=== PATIENT | male | born 1970 | race Hispanic/Latino ===

== ENCOUNTER 2017-09-03 21:41 | Inpatient (IN) | payer MEDICAID ==
[2017-09-03 21:41] VITALS: BMI 26.6
--- NOTE | 2017-09-03 22:37 | C.PDOC ---
Time Seen by Provider: 09/03/17 22:37 Chief Complaint (Nursing): Psychiatric Evaluation History Per: Patient History/Exam Limitations: no limitations Onset/Duration Of Symptoms: Days Current Symptoms Are (Timing): Still Present Suicide/Self Injury Attempted (Context): None Modifying Factor(s): Cocaine Severity: Moderate Pain Scale Rating Of: 4 Associated Symptoms: Anxiety, Agitation Involuntary Hold By: None Recent travel outside of the [place]: No Additional History Per: Patient Past Medical History Reviewed: Historical Data, Nursing Documentation, Vital Signs Vital Signs: Last Vital Signs Temp 98.2 F 09/03/17 21:58 Pulse 73 09/03/17 21:58 Resp 16 09/03/17 21:58 BP 128/85 09/03/17 21:58 Pulse Ox 98 09/03/17 22:37 - Medical History PMH: Anxiety, Bipolar Disorder, Depression, Kidney Stones, Chronic Kidney Disease, Schizophrenia Denies: Asthma, Bronchitis, Diabetes, Hepatitis, HIV, HTN, Seizures, Sexually Transmitted Disease - [facility] Procedures IMMOBILIZ/WOUND ATTN NEC (03/22/14) PSYCHIAT DRUG THERAP NEC (12/14/14) REMOV THERAPEUT DEV NEC (12/31/14) TETANUS TOXOID ADMINIST (03/06/07) VENOUS PUNCTURE NEC (08/25/11) Family History: States: No Known Family Hx - Social History Hx Tobacco Use: Yes Hx Alcohol Use: No Hx Substance Use: Yes - Immunization History Hx Tetanus Toxoid Vaccination: No Review Of Systems Constitutional: Negative for: Fever, Chills Cardiovascular: Negative for: Chest Pain Respiratory: Negative for: Shortness of Breath Gastrointestinal: Negative for: Abdominal Pain Musculoskeletal: Negative for: Back Pain Skin: Negative for: Rash Neurological: Negative for: Dizziness Psych: Positive for: Anxiety, Psychosis Physical Exam - Physical Exam Appears: Non-toxic Skin: Warm, Dry Head: Normacephalic Eye(s): bilateral: Normal Inspection Oral Mucosa: Moist Neck: Supple Chest: Symmetrical Cardiovascular: Rhythm Regular Respiratory: No Rales, No Rhonchi Gastrointestinal/Abdominal: Soft, No Tenderness Back: Normal Inspection Extremity: Normal ROM Neurological/Psych: Oriented x3 Gait: Steady ED Course And Treatment - Laboratory Results Result Diagrams: 09/03/17 23:05 09/03/17 23:05 O2 Sat by Pulse Oximetry: 98 Disposition Discussed With : Marilu Harvey Comment: accepted the pt on his service and took over the care at 3:41 AM Doctor Will See Patient In The: Hospital Counseled Patient/Family Regarding: Studies Performed, Diagnosis - Disposition Disposition: HOSPITALIZED Disposition Time: 22:37 Condition: FAIR Forms: [facility] (Djiboutian) - POA Present On Arrival: None - Clinical Impression Clinical Impression: Schizophrenia, Cocaine addiction Decision To Admit - Pt Status Changed To: Hospital Disposition Of: Inpatient - Admit Certification Admit to Inpatient:: After my assessment, the patient will require hospitalization for at least two midnights. This is because of the severity of symptoms shown, intensity of services needed, and/or the medical risk in this patient being treated as an outpatient. - InPatient: Physician Admission Certification: I certify that this patient requires 2 or more midnights of care for the following reason:: After my assessment, the patient will require hospitalization for at least two midnights. This is because of the severity of symptoms shown, intensity of services needed, and/or the medical risk in this patient being treated as an outpatient. - . Bed Request Type: Psychiatry Admitting Physician: Marilu Harvey Patient Diagnosis: Schizophrenia, Cocaine addiction
[2017-09-03 23:09] LABS: BASO # 0.1 K/uL (0.0-0.2); BASO % 0.9 % (0.0-2.0); EOS # 0.4 K/uL (0.0-0.7); EOS % 4.9 % (0.0-4.0); HEMOGLOBIN 12.7 g/dL (12.0-18.0); LYMPH # 2.3 K/uL (1.0-4.3); LYMPH % 30.8 % (20.0-40.0); MEAN CELL VOLUME 84.3 fL (80.0-94.0); MEAN CORPUSCULAR HGB CONC 34.4 g/dL (33.0-37.0); MEAN PLATELET VOLUME 7.8 fL (7.2-11.7); MONO # 0.5 K/uL (0.0-0.8); MONO % 7.2 % (0.0-10.0); NEUT # 4.2 K/uL (1.8-7.0); NEUT % 56.2 % (50.0-75.0); RBC 4.38 Mil/uL (4.40-5.90); RED CELL DISTRIBUTION WIDTH 13.4 % (11.5-14.5); WHITE BLOOD COUNT 7.5 K/uL (4.8-10.8)
[2017-09-03 23:23] LABS: ALB/GLOB RATIO 1.1 (1.0-2.1); ALBUMIN 3.6 g/dL (3.5-5.0); ALT/SGPT 32 U/L (21-72); AST/SGOT 26 U/L (17-59); BLOOD UREA NITROGEN 17 mg/dL (9-20); CALCIUM 8.9 mg/dl (8.6-10.4); GFR AFRICAN-AMERICAN > 60; GFR NON-AFRICAN AMERICAN > 60
[2017-09-04 02:50] LABS: SQUAMOUS EPITHIAL < 1 /hpf (0-5); URINE BILIRUBIN NEGATIVE (NEGATIVE); URINE BLOOD NEGATIVE (NEGATIVE); URINE CLARITY Clear (Clear); URINE COLOR Yellow (YELLOW); URINE GLUCOSE (UA) NORMAL (Normal); URINE LEUKOCYTE ESTERASE NEG Leu/uL (Negative); URINE PROTEIN NEGATIVE (NEGATIVE)
[2017-09-04 03:03] LABS: BARBITURATES, UR NEGATIVE (NEGATIVE); BENZODIAZEPINES, UR NEGATIVE (NEGATIVE); OPIATES, UR NEGATIVE (NEGATIVE); PHENCYCLIDINE, UR NEGATIVE (NEGATIVE)
--- NOTE | 2017-09-04 12:01 | PCM.BM ---
<Aurora Correa - Last Filed: 09/04/17 11:59> Treatment Plan Problems - Problems identified on initial assessmt Depression Date Initiated: 09/04/17 Time Initiated: 12:00 Assessment reference: NA Status: Active Substance Abuse Date Initiated: 09/04/17 Time Initiated: 12:00 Assessment reference: NA Status: Active Treatment assets and liabiliti Patient Assests: ADL independent, physically healthy, negotiates basic needs, cognitively intact Patient Liabilities: relationship conflicts, substance abuse - Milieu Protocol Maintain good personal hygiene: daily Encourage regular showers Conduct patient checks and document Observation sheet: Q15 minutes Maintain personal safety: every shift Educate patient to report safety concerns to staff, every shift Monitor environment for contraband/sharps Medication safety: Monitor for expected outcome, potential side effects: every shift, Assess barriers to learning: every shift, Assess readiness for medication education: every shift <Marilu Harvey - Last Filed: 09/06/17 11:44> - Diagnosis (1) Schizophrenia Status: Chronic Interventions: 09/06/17 11:44 * Assess/adjust medications daily and /or as needed * See patient on an individual basis 7x/week to assess status of hallucinations * Discuss risks, benefits, side effects and alternatives of medications * <Liza Navarro - Last Filed: 09/06/17 16:32> Family Contact Family involvement: Patient does not wish Family/SO involvement Family contact: Patient declines to allow family contact at present - Goals for Treatment Patient goals for treatment: "I do not know where I want to go for treatment!" Discharge/Continuing Care - Education Needs Education Needs: Patient Medication, Patient Diagnosis/Disease Process, Patient Coping Skills, Patient Anger Management skills, Patient Placement options, Patient Community resources - Discharge Discharge Criteria: Free of Suicidal thoughts, Normal sleep pattern, Ability to care for self, No longer exhibiting s/s of withdrawal, Reduction of target symptoms Discharge to:: [facility], [facility] Rehab, Other - Treatment Team Participation Discussed with Family/SO: No Was Patient/Family/SO present at Treatment Team Meeting: No (Pt refused to attend treatment meeting.)
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
[2017-09-04] MEDS: Divalproex 250 mg DR Tab PO SCH ×2 (13:45→17:20)
[2017-09-05] MEDS: Divalproex 250 mg DR Tab PO SCH (09:45)
--- NOTE | 2017-09-05 15:48 | PCM.PYCHPN ---
Psychiatric Progress Note - Psychiatric Progress Note Patient seen today, length of contact: 16 min Patient Chief Complaint: I'm not feeling well.' Problems Identified/Issues Discussed: Patient seen and evaluated, chart reviewed and discussed with the nurse. Patient remained disorganized and internally preoccupied. Patient remained isolated, confined and withdrawn. He still reports of hearing voices. Patient still appears paranoid and delusional. He reports depressed mood and irritability. He continued to have loose associations. He is taking medication and denies any side effects. Symptoms are improving but needs more time for stabilization. Supportive therapy and psychoeducation were given. Medication Change: Yes Medical Record Reviewed: Yes Mental Status Examination - Cognitive Function Orientation: Person, Place, Situation, Time Memory: Intact Attention: Poor Concentration: Poor Association: Loose Fund of Knowledge: Poor - Mood Mood: Depressed, Anxious - Affect Affect: Broad - Speech Speech: Loud, Pressured - Formal Thought Process Formal Thought Process: Delusions, Paranoia, Loosening of associations, Flight of ideas, Circumstantial - Suicidal Ideation Suicidal Ideation: No - Homicidal Ideation Homicidal Ideation: No Goal/Treatment Plan - Goal/Treatment Plan Need for Continued Stay: Severe depression anxiety, Severe functional impairment Progress Toward Problem(s) and Goals/Treatment Plan: Schizoaffective disorder bipolar type CBT Psychoeducation Supportive therapy, group therapy, individual therapy Olanzapine 5 mg PO BID Depakote 5000 mg by mouth twice a day Trazodone 100 mg by mouth daily at bedtime Cogentin 1 mg BID Cocaine use disorder severe CBT Psychoeducation Supportive therapy, individual therapy Use [place] for abstinence - Smoking Cessation Smoking Cessation Initiated: No
[2017-09-05] MEDS: Divalproex 500 mg DR Tab PO SCH (18:04)
[2017-09-06] MEDS: Divalproex 500 mg DR Tab PO SCH ×2 (09:37→17:50)
--- NOTE | 2017-09-06 10:01 | PCM.PYCHPN ---
Psychiatric Progress Note - Psychiatric Progress Note Patient seen today, length of contact: 16 min Patient Chief Complaint: I'm not feeling well.' Problems Identified/Issues Discussed: Patient seen and evaluated, chart reviewed and discussed with the nurse. Patient remained disorganized and internally preoccupied. Patient remained isolated, confined and withdrawn. He still reports of hearing voices. Patient still appears paranoid and delusional. He reports depressed mood and irritability. He continued to have loose associations. He is taking medication and denies any side effects. Symptoms are improving but needs more time for stabilization. Supportive therapy and psychoeducation were given. Medication Change: Yes Medical Record Reviewed: Yes Mental Status Examination - Cognitive Function Orientation: Person, Place, Situation, Time - Mood Mood: Depressed, Anxious - Affect Affect: Broad - Speech Speech: Loud, Pressured - Formal Thought Process Formal Thought Process: Delusions, Paranoia, Loosening of associations, Flight of ideas, Circumstantial - Suicidal Ideation Suicidal Ideation: No - Homicidal Ideation Homicidal Ideation: No Goal/Treatment Plan - Goal/Treatment Plan Need for Continued Stay: Severe depression anxiety, Severe functional impairment Progress Toward Problem(s) and Goals/Treatment Plan: Schizoaffective disorder bipolar type CBT Psychoeducation Supportive therapy, group therapy, individual therapy Depakote 250 mg by mouth twice a day Trazodone 50 mg by mouth daily at bedtime Ativan 1 mg PO Q6 hr prn Cocaine use disorder severe CBT Psychoeducation Supportive therapy, individual therapy Use [place] for abstinence
[2017-09-07] MEDS: Divalproex 500 mg DR Tab PO SCH ×3 (09:08→17:17)
[2017-09-08] MEDS: Divalproex 500 mg DR Tab PO SCH ×2 (09:33→17:45)
--- NOTE | 2017-09-09 10:08 | PCM.PYCHPN ---
Psychiatric Progress Note - Psychiatric Progress Note Patient seen today, length of contact: 16 min Patient Chief Complaint: I'm not feeling well.' Problems Identified/Issues Discussed: Patient seen and evaluated, chart reviewed and discussed with the nurse. Had a meeting with 2 probation officers. Pt came out of his room and joined the meeting. He appears more organized and less internally preoccupied than before. Patient still appears paranoid and delusional. He reports improvement in his depressed mood and irritability. He is taking medication and denies any side effects. Symptoms are improving but needs more time for stabilization. Supportive therapy and psychoeducation were given. Medication Change: Yes Medical Record Reviewed: Yes Mental Status Examination - Cognitive Function Orientation: Person, Place, Situation, Time Memory: Intact Attention: WNL Concentration: Poor Association: Loose Fund of Knowledge: Poor - Mood Mood: Depressed, Anxious - Affect Affect: Broad - Speech Speech: Loud, Pressured - Formal Thought Process Formal Thought Process: Delusions, Paranoia, Loosening of associations, Flight of ideas, Circumstantial - Suicidal Ideation Suicidal Ideation: No - Homicidal Ideation Homicidal Ideation: No Goal/Treatment Plan - Goal/Treatment Plan Need for Continued Stay: Severe depression anxiety, Severe functional impairment Progress Toward Problem(s) and Goals/Treatment Plan: Schizoaffective disorder bipolar type CBT Psychoeducation Supportive therapy, group therapy, individual therapy Depakote 250 mg by mouth twice a day Trazodone 50 mg by mouth daily at bedtime Ativan 1 mg PO Q6 hr prn Cocaine use disorder severe CBT Psychoeducation Supportive therapy, individual therapy Use [place] for abstinence - Smoking Cessation Smoking Cessation Initiated: No
[2017-09-09] MEDS: Divalproex 500 mg DR Tab PO SCH ×2 (11:02→17:31)
[2017-09-10] MEDS: Divalproex 500 mg DR Tab PO SCH ×2 (09:20→17:10)
--- NOTE | 2017-09-10 10:00 | PCM.PYCHPN ---
Psychiatric Progress Note - Psychiatric Progress Note Patient seen today, length of contact: 16 min Patient Chief Complaint: I'm not feeling well.' Problems Identified/Issues Discussed: Patient seen and evaluated, chart reviewed and discussed with the nurse. Pt came out of his room and appears more organized and less internally preoccupied than before. Patient still appears somewhat paranoidl. He reports improvement in his depressed mood and irritability. He is taking medication and denies any side effects. Symptoms are improving but needs more time for stabilization. Supportive therapy and psychoeducation were given. Medication Change: Yes (increase depakote) Medical Record Reviewed: Yes Mental Status Examination - Cognitive Function Orientation: Person, Place, Situation, Time Memory: Intact Attention: WNL Concentration: Poor Association: Loose Fund of Knowledge: WNL - Mood Mood: Depressed, Anxious - Affect Affect: Broad - Speech Speech: Loud, Pressured - Formal Thought Process Formal Thought Process: Paranoia, Loosening of associations - Suicidal Ideation Suicidal Ideation: No - Homicidal Ideation Homicidal Ideation: No Goal/Treatment Plan - Goal/Treatment Plan Need for Continued Stay: Severe depression anxiety, Severe functional impairment Progress Toward Problem(s) and Goals/Treatment Plan: Schizoaffective disorder bipolar type CBT Psychoeducation Supportive therapy, group therapy, individual therapy Depakote 500 mg by mouth twice a day Trazodone 50 mg by mouth daily at bedtime Increase Olanzapine to 10 mg PO BID Ativan 1 mg PO Q6 hr prn Cocaine use disorder severe CBT Psychoeducation Supportive therapy, individual therapy Use [place] for abstinence
[2017-09-11] MEDS: Divalproex 500 mg DR Tab PO SCH ×2 (09:22→17:13)
--- NOTE | 2017-09-11 16:20 | PCM.PYCHPN ---
Psychiatric Progress Note - Psychiatric Progress Note Patient seen today, length of contact: 16 min Patient Chief Complaint: "I'm feeling Okay" Problems Identified/Issues Discussed: Patient seen and evaluated, chart reviewed and discussed with the nurse. Patient is improving but he still needs to improve. He is less disorganized and internally preoccupied. Patient remained isolated, confined and withdrawn. He still reports of hearing voices. Patient still appears paranoid and delusional. He reports depressed mood and irritability. He continued to have loose associations. He is taking medication and denies any side effects. Symptoms are improving but needs more time for stabilization. DSM 5 Symptoms Update: Schizoaffective disorder cocaine use disorder Medication Change: Yes Medical Record Reviewed: Yes Mental Status Examination - Cognitive Function Orientation: Person, Place, Situation, Time Memory: Intact Attention: Poor Concentration: WNL Association: Loose Fund of Knowledge: Poor Decription of patient's judgement and insights: limited/limited - Mood Mood: Depressed, Anxious - Affect Affect: Broad - Speech Speech: Loud, Pressured - Formal Thought Process Formal Thought Process: Delusions, Paranoia, Loosening of associations, Flight of ideas, Circumstantial - Suicidal Ideation Suicidal Ideation: No Plan: denied - Homicidal Ideation Homicidal Ideation: No Plan: denied Goal/Treatment Plan - Goal/Treatment Plan Need for Continued Stay: Severe depression anxiety, Severe functional impairment Progress Toward Problem(s) and Goals/Treatment Plan: Continue treatment as per primary team Therapy in milieu Psychoeducation provided regarding diagnosis, treatment, meds benefits, side effects, risk and alternative choices. Pt verbalized understanding and agree with the treatment plan. Continue current management and medications. Patient educated about risks, benefits, side effects & alternatives of meds. Pt verbalized understanding & agreed with the above. Estimated Date of D/C: 09/17/17
[2017-09-12] MEDS: Divalproex 500 mg DR Tab PO SCH ×2 (09:20→17:13)
--- NOTE | 2017-09-12 17:58 | PCM.PYCHPN ---
Psychiatric Progress Note - Psychiatric Progress Note Patient seen today, length of contact: 16 min Patient Chief Complaint: "I'm Okay" Problems Identified/Issues Discussed: Patient seen and evaluated, chart reviewed and discussed with the nurse. Patient is improving but he still needs to improve. He is less disorganized and internally preoccupied. Patient remained isolated, confined and withdrawn. He still reports of hearing voices. Patient still appears paranoid and delusional. He reports depressed mood and irritability. He continued to have loose associations. He is taking medication and denies any side effects. Symptoms are improving but needs more time for stabilization. DSM 5 Symptoms Update: Schizoaffective disorder cocaine use disorder Medication Change: No Medical Record Reviewed: Yes Mental Status Examination - Cognitive Function Orientation: Person, Place, Situation, Time Memory: Intact Attention: Poor Concentration: WNL Association: Loose Fund of Knowledge: Poor Decription of patient's judgement and insights: limited/limited - Mood Mood: Depressed - Affect Affect: Blunted - Speech Speech: Pressured - Formal Thought Process Formal Thought Process: Delusions, Paranoia, Loosening of associations, Flight of ideas, Circumstantial - Suicidal Ideation Suicidal Ideation: No Plan: denied - Homicidal Ideation Homicidal Ideation: No Plan: denied Goal/Treatment Plan - Goal/Treatment Plan Need for Continued Stay: Severe depression anxiety, Severe functional impairment Progress Toward Problem(s) and Goals/Treatment Plan: Continue treatment as per primary team Therapy in milieu Psychoeducation provided regarding diagnosis, treatment, meds benefits, side effects, risk and alternative choices. Pt verbalized understanding and agree with the treatment plan. Continue current management and medications. Patient educated about risks, benefits, side effects & alternatives of meds. Pt verbalized understanding & agreed with the above. Estimated Date of D/C: 09/17/17
[2017-09-13 07:00] VITALS: RESP 18; TEMP 97.5; O2SAT 98
[2017-09-13] MEDS: Divalproex 500 mg DR Tab PO SCH ×2 (09:00→17:24)
[2017-09-14 06:44] VITALS: BP 134/71; PULSE 63
[2017-09-14] MEDS: Divalproex 500 mg DR Tab PO SCH (09:00)
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
--- NOTE | 2017-09-14 10:06 | PCM.PYCHPN ---
Psychiatric Progress Note - Psychiatric Progress Note Patient seen today, length of contact: 16 min Patient Chief Complaint: I'm feeling little better.' Problems Identified/Issues Discussed: Patient seen and evaluated, chart reviewed and discussed with the nurse. Pt came out of his room and appears more organized and less internally preoccupied than before. Patient still appears somewhat paranoidl. He reports improvement in his depressed mood and irritability. He is taking medication and denies any side effects. Symptoms are improving but needs more time for stabilization. Supportive therapy and psychoeducation were given. Medication Change: Yes Medical Record Reviewed: Yes Mental Status Examination - Cognitive Function Orientation: Person, Place, Situation, Time Memory: Intact Attention: WNL Concentration: Poor Association: Loose Fund of Knowledge: WNL - Mood Mood: Depressed, Anxious - Affect Affect: Broad - Speech Speech: Loud, Pressured - Formal Thought Process Formal Thought Process: Paranoia, Loosening of associations - Suicidal Ideation Suicidal Ideation: No - Homicidal Ideation Homicidal Ideation: No Goal/Treatment Plan - Goal/Treatment Plan Need for Continued Stay: Severe depression anxiety, Severe functional impairment Progress Toward Problem(s) and Goals/Treatment Plan: Schizoaffective disorder bipolar type CBT Psychoeducation Supportive therapy, group therapy, individual therapy Depakote 500 mg by mouth twice a day Trazodone 100 mg by mouth daily at bedtime Olanzapine to 10 mg PO BID Ativan 1 mg PO Q6 hr prn Cocaine use disorder severe CBT Psychoeducation Supportive therapy, individual therapy Use [place] for abstinence Estimated Date of D/C: 09/17/17
== END 2017-09-14 12:03 | disposition home or self-care (01) | DRG 430 ==
LOC: C.ER 21:41 → C.5E 09-04 03:40
PROVIDERS: ADMIT Psychiatry & Neurology Psychiatry; ATTEND Psychiatry & Neurology Psychiatry
PROC: GZHZZZZ Group Psychotherapy (ICD-10-PCS; principal; 2017-09-04)
DX: F25.0 Schizoaffective disorder, bipolar type (principal); N18.9 Chronic kidney disease, unspecified; F14.10 Cocaine abuse, uncomplicated; G47.00 Insomnia, unspecified; R45.851 Suicidal ideations; Z87.891 Personal history of nicotine dependence

== ENCOUNTER 2017-09-28 10:07 | Emergency (ER) | payer MEDICAID ==
[2017-09-28 10:10] VITALS: BMI 25.1
[2017-09-28 10:13] VITALS: BP 163/84; PULSE 101; RESP 20; TEMP 98.2; O2SAT 98
--- NOTE | 2017-09-28 10:45 | C.PDOC ---
History Of Present Illness 47 y/o male homeless with PMHx of scizoaffective , bipolar disorder presents to the ED with depressive mood. States he feels like giving up and is having thoughts of harming himself. Otherwise, pt denies any active physical complaints. Denies having hallucinations, headache, dizziness, CP, SOB, dyspnea , palpitation, abd. pain, N/V/D. Appears comfortable, not in any apparent distress. Time Seen by Provider: 09/28/17 10:08 Chief Complaint (Nursing): Psychiatric Evaluation History Per: Patient History/Exam Limitations: no limitations Onset/Duration Of Symptoms: Days Current Symptoms Are (Timing): Still Present Associated Symptoms: Depression, Suicidal Thoughts Past Medical History Reviewed: Historical Data, Nursing Documentation, Vital Signs Vital Signs: Last Vital Signs Temp 98.2 F 09/28/17 10:10 Pulse 101 H 09/28/17 10:10 Resp 20 09/28/17 10:10 BP 163/84 H 09/28/17 10:10 Pulse Ox 98 09/28/17 12:30 - Medical History PMH: Anxiety, Bipolar Disorder, Depression, Kidney Stones, Chronic Kidney Disease, Schizophrenia Denies: Asthma, Bronchitis, Diabetes, Hepatitis, HIV, HTN, Seizures, Sexually Transmitted Disease Surgical History: No Surg Hx - [facility] Procedures GROUP PSYCHOTHERAPY (09/04/17) IMMOBILIZ/WOUND ATTN NEC (03/22/14) PSYCHIAT DRUG THERAP NEC (12/14/14) REMOV THERAPEUT DEV NEC (12/31/14) TETANUS TOXOID ADMINIST (03/06/07) VENOUS PUNCTURE NEC (08/25/11) Family History: States: Unknown Family Hx - Social History Hx Tobacco Use: Yes Hx Alcohol Use: Yes Hx Substance Use: Yes - Immunization History Hx Tetanus Toxoid Vaccination: No Hx Influenza Vaccination: No Hx Pneumococcal Vaccination: No Review Of Systems Except As Marked, All Systems Reviewed And Found Negative. Psych: Positive for: Depression, Suicidal ideation. Negative for: Other ( hallucinations, homicidal ideation) Physical Exam - Physical Exam Appears: Well, Non-toxic, No Acute Distress, Other (Appears disheveled, foul smelling) Skin: Normal Color, Warm, No Rash Head: Atraumatic, Normacephalic Eye(s): bilateral: PERRL Nose: No Flaring, No Discharge Oral Mucosa: Moist, No Drooling, No Trismus Tongue: Normal Appearing Throat: No Drooling Neck: Normal ROM, Trachea Midline, No Midline Cervical Tenderness, No Paracervical Tenderness, Supple Chest: Symmetrical, No Deformity, No Tenderness Cardiovascular: Rhythm Regular, No Murmur, No JVD Respiratory: No Accessory Muscle Use, No Rales, No Rhonchi, No Stridor, No Wheezing Gastrointestinal/Abdominal: Soft, No Tenderness, No Distention Back: No Vertebral Tenderness, No Paraspinal Tenderness Extremity: Normal ROM, No Tenderness, No Pedal Edema, Capillary Refill (less than 2sec), No Deformity, Other (No abrasions or evidence of trauma) Pulses: Left Radial: Normal, Right Radial: Normal Neurological/Psych: Oriented x3, Normal Speech, Normal Cranial Nerves, Normal Motor, Normal Sensation, Other (No focal deficits) Gait: Steady ED Course And Treatment - Laboratory Results Result Diagrams: 09/28/17 10:55 09/28/17 10:55 Lab Interpretation: No Acute Changes O2 Sat by Pulse Oximetry: 98 (RA) Pulse Ox Interpretation: Normal Progress Note: Blood work and urine sent. Patient placed on 1:1 observation due to suicide precautions. At 12:10, blood work, UA results review and appears normal. Pt is medically cleared for PES evaluation. AT 12:55, pt was evaluated by PES, case discussed with and pt was psych cleared for discharge and outpt f/u. On re-eval, pt is awake, comforatble, not in any apparent distress. Ambulatory in ED with stable gait. Neurologicaly intact. Stable for discharge with outpt f/u now. Disposition Counseled Patient/Family Regarding: Studies Performed, Diagnosis, Need For Followup - Disposition Referrals: [facility] [Outside] [facility] [Outside] Disposition: HOME/ ROUTINE Disposition Time: 13:00 Condition: STABLE Additional Instructions: Follow up with Psychiatrist in 2-3 days for re-evaluation as need return if any new changes. Instructions: Schizoaffective Disorder Forms: [facility] (Togolese) - Clinical Impression Clinical Impression: Malingering, Schizoaffective disorder - PA / ASSEMBLY LINE LEADER / Resident Statement MD/DO has reviewed & agrees with the documentation as recorded. - Scribe Statement The provider has reviewed the documentation as recorded by the Scribe (Elizabeth Littlejohn) All medical record entries made by the Scribe were at my direction and personally dictated by me. I have reviewed the chart and agree that the record accurately reflects my personal performance of the history, physical exam, medical decision making, and the department course for this patient. I have also personally directed, reviewed, and agree with the discharge instructions and disposition.
[2017-09-28 11:06] LABS: BASO % 0.5 % (0.0-2.0); EOS # 0.5 K/uL (0.0-0.7); EOS % 8.3 % (0.0-4.0); HEMOGLOBIN 13.4 g/dL (12.0-18.0); LYMPH # 1.8 K/uL (1.0-4.3); LYMPH % 27.3 % (20.0-40.0); MEAN CELL VOLUME 84.6 fL (80.0-94.0); MEAN CORPUSCULAR HGB CONC 34.2 g/dL (33.0-37.0); MEAN PLATELET VOLUME 7.7 fL (7.2-11.7); MONO # 0.5 K/uL (0.0-0.8); MONO % 7.4 % (0.0-10.0); NEUT # 3.6 K/uL (1.8-7.0); NEUT % 56.5 % (50.0-75.0); NRBC % 0.1 % (0.0-2.0); RBC 4.64 Mil/uL (4.40-5.90); RED CELL DISTRIBUTION WIDTH 14.4 % (11.5-14.5); WHITE BLOOD COUNT 6.5 K/uL (4.8-10.8)
[2017-09-28 11:23] LABS: ALB/GLOB RATIO 1.6 (1.0-2.1); ALBUMIN 4.2 g/dL (3.5-5.0); ALT/SGPT 20 U/L (21-72); AST/SGOT 22 U/L (17-59); BLOOD UREA NITROGEN 18 mg/dL (9-20); CALCIUM 9.1 mg/dl (8.6-10.4); GFR AFRICAN-AMERICAN > 60; GFR NON-AFRICAN AMERICAN > 60
[2017-09-28 12:09] LABS: SQUAMOUS EPITHIAL < 1 /hpf (0-5); URINE BILIRUBIN NEGATIVE (NEGATIVE); URINE BLOOD NEGATIVE (NEGATIVE); URINE CLARITY Hazy (Clear); URINE COLOR Amber (YELLOW); URINE GLUCOSE (UA) NORMAL (Normal); URINE LEUKOCYTE ESTERASE TRACE Leu/uL (Negative); URINE PROTEIN 1+ mg/dL (NEGATIVE)
[2017-09-28 13:11] LABS: BARBITURATES, UR NEGATIVE (NEGATIVE); BENZODIAZEPINES, UR NEGATIVE (NEGATIVE); OPIATES, UR NEGATIVE (NEGATIVE); PHENCYCLIDINE, UR NEGATIVE (NEGATIVE)
== END 2017-09-28 13:48 | disposition home or self-care (01) ==
LOC: C.ER 10:07
DX: F25.9 Schizoaffective disorder, unspecified (principal); Z76.5 Malingerer [conscious simulation]; Z59.0 Homelessness; Z72.0 Tobacco use; N18.9 Chronic kidney disease, unspecified

== ENCOUNTER 2017-09-28 19:15 | Emergency (ER) | payer MEDICAID ==
[2017-09-28 19:16] VITALS: BMI 25.1
[2017-09-28 19:19] VITALS: RESP 16
[2017-09-28 19:26] VITALS: BP 95/58; PULSE 77; TEMP 98.3; O2SAT 96
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
== END 2017-09-28 20:52 | disposition home or self-care (01) ==
LOC: C.ER 19:15
DX: F10.10 Alcohol abuse, uncomplicated (principal); F20.9 Schizophrenia, unspecified; N18.9 Chronic kidney disease, unspecified; Z72.0 Tobacco use

== ENCOUNTER 2017-09-30 13:05 | Emergency (ER) | payer MEDICAID ==
[2017-09-30 13:05] VITALS: BMI 25.1
[2017-09-30 13:27] VITALS: RESP 18; O2SAT 99
--- NOTE | 2017-09-30 16:15 | C.PDOC ---
History Of Present Illness 47-year-old male, presents to the emergency department requesting detox from drugs. States he doesn't want to do drugs anymore. Patient notes that if he does not receive detox, he will harm himself. Denies nausea/vomiting, fever or chills. No HI Time Seen by Provider: 09/30/17 14:22 Chief Complaint (Nursing): Substance Abuse History Per: Patient History/Exam Limitations: no limitations Current Symptoms Are (Timing): Still Present Past Medical History Reviewed: Historical Data, Nursing Documentation, Vital Signs Vital Signs: Last Vital Signs Temp 98.4 F 09/30/17 16:33 Pulse 64 09/30/17 16:33 Resp 18 09/30/17 16:33 BP 132/81 09/30/17 16:33 Pulse Ox 99 09/30/17 16:33 - Medical History PMH: Anxiety, Bipolar Disorder, Depression, Kidney Stones, Chronic Kidney Disease, Schizophrenia Denies: Asthma, Bronchitis, Diabetes, Hepatitis, HIV, HTN, Seizures, Sexually Transmitted Disease - [facility] Procedures GROUP PSYCHOTHERAPY (09/04/17) IMMOBILIZ/WOUND ATTN NEC (03/22/14) PSYCHIAT DRUG THERAP NEC (12/14/14) REMOV THERAPEUT DEV NEC (12/31/14) TETANUS TOXOID ADMINIST (03/06/07) VENOUS PUNCTURE NEC (08/25/11) Family History: States: No Known Family Hx - Social History Hx Tobacco Use: Yes Hx Alcohol Use: Yes Hx Substance Use: Yes - Immunization History Hx Tetanus Toxoid Vaccination: No Hx Influenza Vaccination: No Hx Pneumococcal Vaccination: No Review Of Systems Constitutional: Negative for: Fever, Chills Cardiovascular: Negative for: Chest Pain Respiratory: Negative for: Shortness of Breath Gastrointestinal: Negative for: Nausea, Vomiting Musculoskeletal: Negative for: Back Pain Neurological: Negative for: Weakness, Numbness, Headache, Dizziness Physical Exam - Physical Exam Appears: Non-toxic, No Acute Distress Skin: Normal Color, Warm, Dry, No Rash Head: Atraumatic, Normacephalic Eye(s): bilateral: Normal Inspection Nose: Normal Oral Mucosa: Moist Lips: Normal Appearing Neck: Normal ROM Chest: Symmetrical Cardiovascular: Rhythm Regular, No Murmur Respiratory: Normal Breath Sounds, No Accessory Muscle Use Gastrointestinal/Abdominal: Soft, No Tenderness Back: Normal Inspection Extremity: Normal ROM, No Deformity, No Swelling Neurological/Psych: Oriented x3, Normal Speech ED Course And Treatment O2 Sat by Pulse Oximetry: 99 Medical Decision Making Medical Decision Making: Pt evaluated by crisis, recommends discharge by Dr Harvey and omar outpatient with clinic Disposition Discussed With : Marilu Harvey Doctor Will See Patient In The: Hospital Counseled Patient/Family Regarding: Studies Performed, Diagnosis, Need For Followup - Disposition Referrals: Marilu Harvey MD [Staff Provider] - Disposition: HOME/ ROUTINE Disposition Time: 16:13 Condition: STABLE Additional Instructions: you are discharged by Dr. Harvey follow up with [facility] as instructed return to ER if symptoms worsens or progress Instructions: Schizophrenia (DC) Forms: [facility] (Belarusian), General Discharge Instructions - Clinical Impression Clinical Impression: Schizophrenia - Scribe Statement The provider has reviewed the documentation as recorded by the Scribe (Neftaly Jones) All medical record entries made by the Scribe were at my direction and personally dictated by me. I have reviewed the chart and agree that the record accurately reflects my personal performance of the history, physical exam, medical decision making, and the department course for this patient. I have also personally directed, reviewed, and agree with the discharge instructions and disposition.
[2017-09-30 16:33] VITALS: BP 132/81; PULSE 64; TEMP 98.4
== END 2017-09-30 17:00 | disposition home or self-care (01) ==
LOC: C.ER 13:05
DX: F20.9 Schizophrenia, unspecified (principal); Z72.0 Tobacco use

== ENCOUNTER 2017-11-10 21:26 | Inpatient (IN) | payer MEDICAID ==
[2017-11-10 21:26] VITALS: BMI 25.1
--- NOTE | 2017-11-10 21:46 | C.PDOC ---
History Of Present Illness 47 year old male with a Hx of bipolar disorder presents to the ER agitated and shouting with no specific complaint. Chief Complaint (Nursing): Abdominal Pain History Per: Patient History/Exam Limitations: no limitations Onset/Duration Of Symptoms: Hrs Current Symptoms Are (Timing): Still Present Past Medical History Reviewed: Historical Data, Nursing Documentation, Vital Signs Vital Signs: Last Vital Signs Temp 97.6 F 11/11/17 00:33 Pulse 90 11/11/17 05:47 Resp 14 11/11/17 05:47 BP 100/68 11/11/17 05:47 Pulse Ox 96 11/11/17 05:47 - Medical History PMH: Anxiety, Bipolar Disorder, Depression, Kidney Stones, Chronic Kidney Disease, Schizophrenia Denies: Asthma, Bronchitis, Diabetes, Hepatitis, HIV, HTN, Seizures, Sexually Transmitted Disease - [facility] Procedures GROUP PSYCHOTHERAPY (09/04/17) IMMOBILIZ/WOUND ATTN NEC (03/22/14) MEDICATION MANAGEMENT (10/02/17) PSYCHIAT DRUG THERAP NEC (12/14/14) REMOV THERAPEUT DEV NEC (12/31/14) TETANUS TOXOID ADMINIST (03/06/07) VENOUS PUNCTURE NEC (08/25/11) Family History: States: Unknown Family Hx - Social History Hx Tobacco Use: Yes Hx Alcohol Use: Yes Hx Substance Use: Yes - Immunization History Hx Tetanus Toxoid Vaccination: No Hx Influenza Vaccination: No Hx Pneumococcal Vaccination: No Review Of Systems Review Of Systems: ROS cannot be obtained secondary to pt's inabilty to answer questions. Physical Exam - Physical Exam Appears: Non-toxic Skin: Normal Color, Warm, Dry Head: Atraumatic, Normacephalic Eye(s): bilateral: Normal Inspection Oral Mucosa: Moist Neck: Normal, Supple Chest: Symmetrical, No Tenderness Cardiovascular: Rhythm Regular Respiratory: Normal Breath Sounds, No Rales, No Rhonchi, No Wheezing Gastrointestinal/Abdominal: Soft, No Tenderness Neurological/Psych: Other (No focal deficits) ED Course And Treatment - Laboratory Results Result Diagrams: 11/10/17 22:22 11/10/17 22:22 O2 Sat by Pulse Oximetry: 96 (room air) Pulse Ox Interpretation: Normal Progress Note: Blood work and urinalysis ordered. Ativan and haldol administered. Disposition Discussed With : Kaitlin Thorpe Doctor Will See Patient In The: Hospital Counseled Patient/Family Regarding: Diagnosis - Disposition Disposition: HOSPITALIZED Disposition Time: 05:51 Condition: STABLE Forms: [employer] (Ecuadorean) - Clinical Impression Clinical Impression: Schizoaffective disorder, Cocaine use disorder - Scribe Statement The provider has reviewed the documentation as recorded by the Hyacinthibwillis Eduardo All medical record entries made by the Hyacinthibwillis were at my direction and personally dictated by me. I have reviewed the chart and agree that the record accurately reflects my personal performance of the history, physical exam, medical decision making, and the department course for this patient. I have also personally directed, reviewed, and agree with the discharge instructions and disposition.
[2017-11-10 22:35] LABS: BASO # 0.1 K/uL (0.0-0.2); BASO % 0.7 % (0.0-2.0); EOS # 0.3 K/uL (0.0-0.7); EOS % 3.3 % (0.0-4.0); HEMOGLOBIN 13.3 g/dL (12.0-18.0); LYMPH # 2.2 K/uL (1.0-4.3); LYMPH % 24.8 % (20.0-40.0); MEAN CORPUSCULAR HGB CONC 32.9 g/dL (33.0-37.0); MEAN PLATELET VOLUME 7.7 fL (7.2-11.7); MONO # 0.7 K/uL (0.0-0.8); MONO % 7.7 % (0.0-10.0); NEUT # 5.7 K/uL (1.8-7.0); NEUT % 63.5 % (50.0-75.0); RBC 4.74 Mil/uL (4.40-5.90); RED CELL DISTRIBUTION WIDTH 13.3 % (11.5-14.5); WHITE BLOOD COUNT 8.9 K/uL (4.8-10.8)
[2017-11-10 22:49] LABS: ALB/GLOB RATIO 1.5 (1.0-2.1); ALBUMIN 4.1 g/dL (3.5-5.0); ALT/SGPT 34 U/L (21-72); AST/SGOT 35 U/L (17-59); BLOOD UREA NITROGEN 18 mg/dL (9-20); CALCIUM 9.1 mg/dl (8.6-10.4); GFR AFRICAN-AMERICAN > 60; GFR NON-AFRICAN AMERICAN > 60
[2017-11-11 04:42] LABS: URINE BILIRUBIN NEGATIVE (NEGATIVE); URINE BLOOD NEGATIVE (NEGATIVE); URINE CLARITY Hazy (Clear); URINE COLOR Amber (YELLOW); URINE GLUCOSE (UA) NORMAL (Normal); URINE LEUKOCYTE ESTERASE NEG Leu/uL (Negative); URINE PROTEIN 1+ mg/dL (NEGATIVE)
[2017-11-11 04:58] LABS: BARBITURATES, UR NEGATIVE (NEGATIVE); BENZODIAZEPINES, UR NEGATIVE (NEGATIVE); OPIATES, UR NEGATIVE (NEGATIVE); PHENCYCLIDINE, UR NEGATIVE (NEGATIVE)
--- NOTE | 2017-11-11 07:05 | PCM.BM ---
<Chase Wills - Last Filed: 11/11/17 07:04> Treatment Plan Problems - Problems identified on initial assessmt Schizoaffective Date Initiated: 11/11/17 Time Initiated: 06:40 Assessment reference: NA Status: Active Treatment assets and liabiliti Patient Assests: ADL independent, physically healthy, negotiates basic needs, cognitively intact Patient Liabilities: substance abuse (Cannabis) - Milieu Protocol Maintain good personal hygiene: daily Encourage regular showers, daily Remind patient to perform daily oral care, every shift Assist patient to perform ADL's Conduct patient checks and document Observation sheet: Q15 minutes Maintain personal safety: every shift Educate patient to report safety concerns to staff, every shift Monitor environment for contraband/sharps Medication safety: Monitor for expected outcome, potential side effects: every shift, Assess barriers to learning: every shift, Assess readiness for medication education: every shift <Liza Navarro - Last Filed: 11/12/17 15:34> Family Contact Family involvement: Patient does not wish Family/SO involvement Family contact: Patient declines to allow family contact at present - Goals for Treatment Patient goals for treatment: "I want to go to an outpatient program where I can smoke my cigarettes." Discharge/Continuing Care - Education Needs Education Needs: Patient Medication, Patient Diagnosis/Disease Process, Patient Coping Skills, Patient Placement options, Patient Community resources - Discharge Discharge Criteria: Free of Suicidal thoughts, Free of agitation, Normal sleep pattern, Ability to care for self, No longer exhibiting s/s of withdrawal, Reduction of target symptoms Discharge to:: [facility] - Treatment Team Participation Discussed with Family/SO: No Was Patient/Family/SO present at Treatment Team Meeting: Yes <Marilu Harvey - Last Filed: 11/15/17 11:04> - Diagnosis (1) Schizoaffective disorder Status: Acute Interventions: 11/15/17 11:04 * Assess/adjust medications daily and /or as needed * See patient on an individual basis 7x/week to assess status of hallucinations * Discuss risks, benefits, side effects and alternatives of medications * (2) Cocaine use disorder Status: Acute Interventions: 11/15/17 11:04 * Assess 7x/week regarding severity of withdrawal * Educate regarding risks, benefits, side effects and alternatives of medications * Use Motivational Interviewing for abstinence * Use CBT for relapse prevention * Medication management for withdrawal symptoms * Encourage medication assisted treatment *
[2017-11-11] MEDS: Divalproex 500 mg DR Tab PO SCH ×3 (09:43→17:53)
--- NOTE | 2017-11-11 10:37 | PCM.PSYCH ---
Initial Psychiatric Evaluation - Initial Psychiatric Evaluation Type of Admission: Voluntary Legal Status: Capacity Chief Complaint (in patient's own words): "I need my medications." History of Present Illness and Precipitating Events: Pt is a 47 year old male who presented to the ED for disorganized behavior, abdominal pain and agitation. [employer] Operator is familiar with this patient. He was just discharged from almost 2 months ago. As pet the triage, in the ED, pt suddenly became explosive, yelling at ED staff, and "posturing". Pt was consequently medicated with Haldol 5mg IM/ Ativan 2mg IM. Pt appeared very disorganized and internally preoccupied. Pt states he has thoughts of suicide "sometimes"; Last occurrence of same was yesterday. Pt has no hx of suicide attempts; Pt was diagnosed with bipolar disorder and schizophrenia at the age of 40 at [facility], where he was admitted for 6 months. He was taking Depakote and Zyprexa for 1 year but claims that he lost them at his mother's house 2 months ago when she kicked him out for drugs. He has not taken his medications the past 2 months. Pt states that he has terrible mood swings. During his high, he goes days at a time without sleeping, his mind races, and he is impulsive, violent, and aggravated. During his low points he feels depressed, hopeless, wants to sleep all day, feels guilty, and has decreased concentration. Today pt says that he feels anxious and restless without his medications and looks agitated. Pt reports smoking crack whenever he has access to it and has been doing this for the past 2-3 years. Patient denies marijuana, PCP, LSD, and alcohol but tested positive for cannabis on toxicology screen. Pt smokes 1 pack of cigarettes per day for the past 2-3 years. Pt is agitated and needs time to be stabilized on medications. PMH: None reported Current Medications: Active Medications Generic Name Dose Route Start Last Admin Trade Name Freq PRN Reason Stop Dose Admin Benztropine Mesylate 1 mg 11/11/17 06:58 Cogentin PO Q6H PRN EPS SYMPTOMS Divalproex Sodium 500 mg 11/11/17 10:00 11/11/17 09:[address] PO 500 mg TID NASH Administration Gabapentin 300 mg 11/11/17 10:00 11/11/17 09:43 Neurontin PO 300 mg TID NASH Administration Haloperidol 5 mg 11/11/17 06:59 Haldol PO Q6H PRN Agitation Ibuprofen 600 mg 11/11/17 08:58 Motrin Tab PO Q6H PRN Pain, moderate (4-7) Pneumococcal Polyvalent Vaccine 0.5 ml 11/14/17 10:00 Pneumovax 23 Vaccine SC 11/14/17 10:01 .ONCE ONE Risperidone 1 mg 11/11/17 10:00 11/11/17 09:43 Risperdal Tab PO 1 mg BID NASH Administration Trazodone HCl 100 mg 11/11/17 22:00 Desyrel PO HS NASH Past Psychiatric History - Past Psychiatric History Previous Treatment History: Inpatient Prior Professional Help: [facility] Pertinent Medical Hx (Current Medical&Sleep Prob, Allergies): Allergies Allergy/AdvReac Type Severity Reaction Status Date / Time Penicillins Allergy RASH Verified 11/08/17 13:04 Unobtainable 10/25/17 Review of Systems - Review of Systems All systems: reviewed and no additional remarkable complaints except - Psychiatric Psychiatric: Abnormal Sleep Pattern, Anhedonia, Anxiety, Behavioral Changes, Change in Appetite, Depression, Difficulty Concentrating, Hopelessness, Irritability, Mood Swings, Paranoia, Suicidal Ideation. absent: Auditory Hallucinations, Hallucinations, Homicidal Ideation, Visual Hallucinations, Tactile Hallucinations Mental Status Examination - Personal Presentation Personal Presentation: Looks stated age - Affect Affect: Constricted - Motor Activity Motor Activity: Psychomotor Agitation - Reliability in Providing Information Reliability in Providing Information: Poor, due to alteration in thoughts, Poor , due to altered mood - Speech Speech: Disorganized - Mood Mood: Anxious - Formal Thought Process Formal Thought Process: Delusions, Paranoia, Loosening of associations, Flight of ideas - Hallucinations/Delusions Delusions: Persecution - Obsessions/Compulsions Obsessions: No Compulsions: No - Cognitive Functions Orientation: Person, Place, Situation, Time Sensorium: Alert Attention/Concentration: Attentive Abstract Thinking: [place] Estimate of Intelligence: Below average Judgement: Imparied, as evidence by: Poor judgement, Imparied, as evidence by: Lack of insight into illness - Risk Risk: Suicidal, Diminished functioning - Limitations Limitations: Living alone DSM 5 DX - DSM 5 DSM 5 Diagnosis: Schizoaffective disorder bipolar type Cocaine use disorder severe Cannabis use disorder severe - Recommended/Plan of Treatment Treatment Recommendations and Plan of Treatment: Schizoaffective disorder bipolar type -CBT -Psychoeducation -Supportive therapy, group therapy -Depakote DR 250 mg PO BID -Risperdal 1 mg PO BID -Klonopin 1 mg PO TID -Gabapentin for augmentation -Trazodone for insomnia -Hydroxyzine for anxiety Cocaine use disorder severe -CBT -Psychoeducation -Supportive therapy, individual therapy -Use [place] for abstinence Cannabis use disorder severe -CBT -Psychoeducation -Supportive therapy, individual therapy -Use ND for abstinence
[2017-11-12] MEDS: Divalproex 500 mg DR Tab PO SCH ×3 (09:47→17:35)
--- NOTE | 2017-11-12 17:00 | PCM.PYCHPN ---
Psychiatric Progress Note - Psychiatric Progress Note Patient seen today, length of contact: 15 minutes Patient Chief Complaint: "I need my medications." Problems Identified/Issues Discussed: Pt was evaluated in room. Chart was reviewed with the nursing staff. Pt today was extrememly disorganized with circumferential and tangential stories and stammering speech. He was fixated on his mother and continued to fidgate and walked around the hallway as he spoke. He would continuously turn back to look at the phone. Pt exhibits symptoms of psychosis. Pt reports that his medications made him "feel weird" last night. He states that he is restless throughout the day. Pt confirms that he feels anxious about "his history with his girlfriend and his mom", his social security, his income, and fights with his mom. He is fixated on $13,000 that his mother has and that he just wants to go get his "2 pack" of cigarettes from her house but she won't let him in since "she thinks I am doing drugs when I am not." His stories are disorganized. Patient denies A/H but confirms V/H and says that he sees a [place] girl he was seeing (a different ex girlfriend from earlier) who makes him angry because she tempts him but "someone is taking her away from him." Pt confirms paranoia and says he "feels cursed" and sees people that he thinks he knows but has never met. He says "I don't know who they are but I need to learn who I am." Pt denies S/I but confirms H/I and says that he "would harm someone if there was sexual temptation." Pt continues to ramble about an ID and the heat. Pt is disorganized and needs time to stabilize on medications. Medication Change: No Medical Record Reviewed: Yes Mental Status Examination - Cognitive Function Orientation: Person, Place, Situation, Time Memory: Impaired Attention: Poor Concentration: Poor Association: Loose Fund of Knowledge: Poor - Mood Mood: Depressed, Anxious - Affect Affect: Blunted, Flat - Speech Speech: Stammering - Formal Thought Process Formal Thought Process: Hallucinations, Paranoia, Loosening of associations, Flight of ideas - Suicidal Ideation Suicidal Ideation: No - Homicidal Ideation Homicidal Ideation: Yes Goal/Treatment Plan - Goal/Treatment Plan Need for Continued Stay: Discharge may exacerbated symptoms, Severe functional impairment Progress Toward Problem(s) and Goals/Treatment Plan: Schizoaffective disorder bipolar type -CBT -Psychoeducation -Supportive therapy, group therapy -Depakote DR 250 mg PO BID -Risperdal 1 mg PO BID -Klonopin 1 mg PO TID -Gabapentin for augmentation -Trazodone for insomnia -Hydroxyzine for anxiety Cocaine use disorder severe -CBT -Psychoeducation -Supportive therapy, individual therapy -Use [place] for abstinence Cannabis use disorder severe -CBT -Psychoeducation -Supportive therapy, individual therapy -Use MA for abstinence
[2017-11-13] MEDS: Divalproex 500 mg DR Tab PO SCH ×3 (09:29→17:17)
--- NOTE | 2017-11-13 16:08 | PCM.PYCHPN ---
Psychiatric Progress Note - Psychiatric Progress Note Patient seen today, length of contact: 15 minutes Patient Chief Complaint: I'm feeling little better. Problems Identified/Issues Discussed: Patient seen, chart reviewed, case discussed with the staff. Issues related to illness and treatment were discussed with the patient and staff. Reported compliant with treatment with no adverse affects. Tolerating treatment very well. Calm and cooperative. Feeling little better but still needs more time for stabilization. Mood reported as okay. Affect inappropriate, appeared depressed. Aftercare discussed with the patient. Patient was awake, alert and oriented 3. Denied any delusions, auditory or visual hallucinations, suicidal ideations or homicidal ideations at the time of evaluation. Medical Problems: None reported Diagnostic Results: Reviewed DSM 5 Symptoms Update: Some improvement with treatment Medication Change: No Medical Record Reviewed: Yes Mental Status Examination - Cognitive Function Orientation: Person, Place, Situation, Time Memory: Intact, Impaired Attention: WNL Concentration: WNL Association: [facility] Fund of Knowledge: [facility] Decription of patient's judgement and insights: Fair - Mood Mood: Depressed - Affect Affect: Flat, Depressed - Speech Speech: Appropriate - Formal Thought Process Formal Thought Process: Paranoia (Much less than before) - Suicidal Ideation Suicidal Ideation: No - Homicidal Ideation Homicidal Ideation: No Goal/Treatment Plan - Goal/Treatment Plan Need for Continued Stay: Remain at risks for inpatient hospitalization, Discharge may exacerbated symptoms, Severe functional impairment Progress Toward Problem(s) and Goals/Treatment Plan: Patient education. Supportive therapy. Continue treatment as before. Estimated Date of D/C: 11/16/17 - Smoking Cessation Smoking Cessation Initiated: No
[2017-11-14] MEDS ORDERED: Pneumococcal 23-Valent Vaccine SC ONE (10:00)
[2017-11-14] MEDS: Divalproex 500 mg DR Tab PO SCH ×3 (10:18→17:17)
--- NOTE | 2017-11-14 15:51 | PCM.PYCHPN ---
Psychiatric Progress Note - Psychiatric Progress Note Patient seen today, length of contact: 15 minutes Patient Chief Complaint: I'm feeling better. Problems Identified/Issues Discussed: Patient seen, chart reviewed, case discussed with the staff. Issues related to illness and treatment were discussed with the patient and staff. Reported compliant with treatment with no adverse affects. Tolerating treatment very well. Calm and cooperative. Feeling better but still needs more time for stabilization. Mood reported as okay. Affect inappropriate, appeared depressed. Aftercare discussed with the patient. Patient was awake, alert and oriented 3. Denied any delusions, auditory or visual hallucinations, suicidal ideations or homicidal ideations at the time of evaluation. Medical Problems: None reported Diagnostic Results: Reviewed DSM 5 Symptoms Update: Improving with treatment. Medication Change: No Medical Record Reviewed: Yes Mental Status Examination - Cognitive Function Orientation: Person, Place, Situation, Time Memory: Intact, Impaired Attention: WNL Concentration: WNL Association: [facility] Fund of Knowledge: [facility] Decription of patient's judgement and insights: Fair - Mood Mood: Depressed (Less than before) - Affect Affect: Depressed - Speech Speech: Appropriate - Formal Thought Process Formal Thought Process: Paranoia (Much less than before) - Suicidal Ideation Suicidal Ideation: No - Homicidal Ideation Homicidal Ideation: No Goal/Treatment Plan - Goal/Treatment Plan Need for Continued Stay: Remain at risks for inpatient hospitalization, Discharge may exacerbated symptoms, Severe functional impairment Progress Toward Problem(s) and Goals/Treatment Plan: Patient education. Supportive therapy. Continue treatment as before. Estimated Date of D/C: 11/16/17 - Smoking Cessation Smoking Cessation Initiated: No
[2017-11-15] MEDS: Divalproex 500 mg DR Tab PO SCH ×3 (09:14→18:36)
--- NOTE | 2017-11-15 16:41 | PCM.PYCHPN ---
Psychiatric Progress Note - Psychiatric Progress Note Patient seen today, length of contact: 15 minutes Patient Chief Complaint: "I need my medications." Problems Identified/Issues Discussed: Pt was evaluated in the hallway. Chart was reviewed with the nursing staff. Pt today was extremely disorganized with circumferential and tangential stories and stammering speech. He was fixated on his mother and continued to fidget and walked around the hallway as he spoke. He would continuously turn back to look at the phone. Pt exhibits symptoms of psychosis. He is also fixated on getting his "2 pack" of cigarettes from her house but she won't let him in since "she thinks I am doing drugs when I am not." His stories are disorganized. Patient denies A/H and V/H today. He denies S/I and H/I. Pt continues to ramble about an ID picture as well as making sure that when he leaves he gets all his medications organized so that he can show them to his mom. Pt is disorganized and needs time to stabilize on medications. Medication Change: No Medical Record Reviewed: Yes Mental Status Examination - Cognitive Function Orientation: Person, Place, Situation, Time Memory: Impaired Attention: Poor Concentration: Poor Association: Loose Fund of Knowledge: Poor - Mood Mood: Depressed, Anxious - Affect Affect: Blunted, Flat - Speech Speech: Stammering, Pressured - Formal Thought Process Formal Thought Process: Paranoia, Loosening of associations, Flight of ideas, Circumstantial - Suicidal Ideation Suicidal Ideation: No - Homicidal Ideation Homicidal Ideation: No Goal/Treatment Plan - Goal/Treatment Plan Need for Continued Stay: Discharge may exacerbated symptoms, Severe functional impairment Progress Toward Problem(s) and Goals/Treatment Plan: Schizoaffective disorder bipolar type -CBT -Psychoeducation -Supportive therapy, group therapy -Depakote DR 250 mg PO BID -Risperdal 1 mg PO BID -Klonopin 1 mg PO TID -Gabapentin for augmentation -Trazodone for insomnia -Hydroxyzine for anxiety Cocaine use disorder severe -CBT -Psychoeducation -Supportive therapy, individual therapy -Use [place] for abstinence Cannabis use disorder severe -CBT -Psychoeducation -Supportive therapy, individual therapy -Use [place] for abstinence Estimated Date of D/C: 11/16/17
[2017-11-16 06:46] VITALS: RESP 20
[2017-11-16] MEDS: Divalproex 500 mg DR Tab PO SCH ×3 (09:40→18:02)
--- NOTE | 2017-11-16 14:44 | PCM.PYCHPN ---
Psychiatric Progress Note - Psychiatric Progress Note Patient seen today, length of contact: 15 minutes Patient Chief Complaint: "I need my medications." Problems Identified/Issues Discussed: Pt was evaluated in the hallway. Chart was reviewed with the nursing staff. Pt today was doing better but still exhibited symptoms of psychosis: had disorganized thoughts with a labile affect, was still fixated on his mother taking care of him and his 2 pack cigarettes. While talking on the phone with his mother, pt was giving tangential and circumstantial responses. Patient denies A/H and V/H today. He denies S/I and H/I. Pt is disorganized and needs time to stabilize on medications. Medication Change: No Medical Record Reviewed: Yes Mental Status Examination - Cognitive Function Orientation: Person, Place, Situation, Time Memory: Impaired Attention: Poor Concentration: Poor Association: Loose Fund of Knowledge: Poor - Mood Mood: Anxious - Affect Affect: Constricted, Blunted - Speech Speech: Stammering, Pressured - Formal Thought Process Formal Thought Process: Paranoia, Loosening of associations, Flight of ideas, Circumstantial - Suicidal Ideation Suicidal Ideation: No - Homicidal Ideation Homicidal Ideation: No Goal/Treatment Plan - Goal/Treatment Plan Need for Continued Stay: Discharge may exacerbated symptoms, Severe functional impairment Progress Toward Problem(s) and Goals/Treatment Plan: Schizoaffective disorder bipolar type -CBT -Psychoeducation -Supportive therapy, group therapy -Depakote DR 250 mg PO BID -Risperdal 1 mg PO BID -Klonopin 1 mg PO TID -Gabapentin for augmentation -Trazodone for insomnia -Hydroxyzine for anxiety Cocaine use disorder severe -CBT -Psychoeducation -Supportive therapy, individual therapy -Use [place] for abstinence Cannabis use disorder severe -CBT -Psychoeducation -Supportive therapy, individual therapy -Use SD for abstinence Estimated Date of D/C: 11/16/17
[2017-11-16 15:53] VITALS: O2SAT 98
[2017-11-16] MEDS ORDERED: Aluminum Hydroxide/Magnesium Hydroxide Susp (30 mL) PO PRN (19:29)
[2017-11-17 06:36] VITALS: TEMP 98.5
[2017-11-17 09:37] VITALS: BP 114/77; PULSE 91
[2017-11-17] MEDS: Divalproex 500 mg DR Tab PO SCH (10:21)
--- NOTE | 2017-11-17 10:50 | PCM.PYCHDC ---
Mental Status Examination - Mental Status Examination Orientation: Person, Place, Situation, Time Memory: Intact Mood: Neutral Affect: Constricted Speech: Soft Attention: WNL Concentration: WNL Association: WNL Fund of Knowledge: WNL Formal Thought Process: No Impairment Description of patient's judgement and insight: good, fair Psychotic Thoughts and Behaviors: denies any AVH Suicidal Ideation: No Current Homicidal Ideation?: No Discharge Summary - Discharge Note Reason for Hospitalization: Pt is a 47 year old male who presented to the ED for disorganized behavior, abdominal pain and agitation. Junior Systems Administrator is familiar with this patient. He was just discharged from almost 2 months ago. As pet the triage, in the ED, pt suddenly became explosive, yelling at ED staff, and "posturing". Pt was consequently medicated with Haldol 5mg IM/ Ativan 2mg IM. Pt appeared very disorganized and internally preoccupied. Pt states he has thoughts of suicide "sometimes"; Last occurrence of same was yesterday. Pt has no hx of suicide attempts; Pt was diagnosed with bipolar disorder and schizophrenia at the age of 40 at [facility], where he was admitted for 6 months. He was taking Depakote and Zyprexa for 1 year but claims that he lost them at his mother's house 2 months ago when she kicked him out for drugs. He has not taken his medications the past 2 months. Pt states that he has terrible mood swings. During his high, he goes days at a time without sleeping, his mind races, and he is impulsive, violent, and aggravated. During his low points he feels depressed, hopeless, wants to sleep all day, feels guilty, and has decreased concentration. Today pt says that he feels anxious and restless without his medications and looks agitated. Pt reports smoking crack whenever he has access to it and has been doing this for the past 2-3 years. Patient denies marijuana, PCP, LSD, and alcohol but tested positive for cannabis on toxicology screen. Pt smokes 1 pack of cigarettes per day for the past 2-3 years. Pt is agitated and needs time to be stabilized on medications. Consultations:: List each consultation separately and include: 1. Reason for request. 2. Findings. 3. Follow-up Summary of Hospital Course include:: 1. Description of specific treatment plan utilized for patients during their course of treatmen. 2. Summarize the time- course for resolution of acute symptoms and/or regressed behaviors. 3. Describe issues identified and worked on during hospitalization. 4. Describe medication utilized. 5. Describe medical problems identified and treated. 6. Reassessment of suicide risk Summary of Hospital Course: Pt is a 47 year old male who presented to the ED for disorganized behavior, abdominal pain and agitation. Junior Systems Administrator is familiar with this patient. He was just discharged from almost 2 months ago. As pet the triage, in the ED, pt suddenly became explosive, yelling at ED staff, and "posturing". Pt was consequently medicated with Haldol 5mg IM/ Ativan 2mg IM. Pt appeared very disorganized and internally preoccupied. Pt states he has thoughts of suicide "sometimes"; Last occurrence of same was yesterday. Pt has no hx of suicide attempts; Pt was diagnosed with bipolar disorder and schizophrenia at the age of 40 at [facility], where he was admitted for 6 months. He was taking Depakote and Zyprexa for 1 year but claims that he lost them at his mother's house 2 months ago when she kicked him out for drugs. He has not taken his medications the past 2 months. Pt states that he has terrible mood swings. During his high, he goes days at a time without sleeping, his mind races, and he is impulsive, violent, and aggravated. During his low points he feels depressed, hopeless, wants to sleep all day, feels guilty, and has decreased concentration. Today pt says that he feels anxious and restless without his medications and looks agitated. Pt reports smoking crack whenever he has access to it and has been doing this for the past 2-3 years. Patient denies marijuana, PCP, LSD, and alcohol but tested positive for cannabis on toxicology screen. Pt smokes 1 pack of cigarettes per day for the past 2-3 years. Pt is agitated and needs time to be stabilized on medications. PMH: None reported - Diagnosis (1) Schizoaffective disorder Current Visit: Yes Status: Acute (2) Cocaine use disorder Current Visit: Yes Status: Acute - Final Diagnosis (DSM 5) Condition upon Discharge: STABLE DSM 5: Schizoaffective disorder bipolar type -CBT -Psychoeducation -Supportive therapy, group therapy -Depakote DR 250 mg PO BID -Risperdal 1 mg PO BID -Klonopin 1 mg PO TID -Gabapentin for augmentation -Trazodone for insomnia -Hydroxyzine for anxiety Cocaine use disorder severe -CBT -Psychoeducation -Supportive therapy, individual therapy -Use [place] for abstinence Cannabis use disorder severe -CBT -Psychoeducation -Supportive therapy, individual therapy -Use [place] for abstinence Disposition: HOME/ ROUTINE Follow-up Treatment Plan: Schizoaffective disorder bipolar type -CBT -Psychoeducation -Supportive therapy, group therapy -Depakote DR 250 mg PO BID -Risperdal 1 mg PO BID -Klonopin 1 mg PO TID -Gabapentin for augmentation -Trazodone for insomnia -Hydroxyzine for anxiety Cocaine use disorder severe -CBT -Psychoeducation -Supportive therapy, individual therapy -Use [place] for abstinence Cannabis use disorder severe -CBT -Psychoeducation -Supportive therapy, individual therapy -Use [place] for abstinence Prescriptions/Medication Reconciliation: clonazePAM [Klonopin] 1 mg PO BID #60 tab Divalproex [Depakote DR] 500 mg PO TID #90 tcp Gabapentin [Neurontin] 300 mg PO TID #90 cap risperiDONE [RisperDAL Tab] 2 mg PO BID #60 tab traZODone [Desyrel] 100 mg PO HS #30 tab - Smoking Cessation Smoking Cessation Medication prescribed: No - Antipsychotic Medications Pt discharged on 2 or more routine antipsychotic medications: No
== END 2017-11-17 11:35 | disposition home or self-care (01) | DRG 430 ==
LOC: C.ER 21:26 → C.5E 11-11 05:52
PROVIDERS: ADMIT Psychiatry & Neurology Psychiatry; ATTEND Psychiatry & Neurology Psychiatry
PROC: GZHZZZZ Group Psychotherapy (ICD-10-PCS; principal; 2017-11-11)
PROC: GZ58ZZZ Individual Psychotherapy, Cognitive-Behavioral (ICD-10-PCS; 2017-11-11)
PROC: GZ56ZZZ Individual Psychotherapy, Supportive (ICD-10-PCS; 2017-11-11)
PROC: HZ52ZZZ Individual Psychotherapy for Substance Abuse Treatment, Cognitive-Behavioral (ICD-10-PCS; 2017-11-11)
PROC: HZ59ZZZ Individual Psychotherapy for Substance Abuse Treatment, Supportive (ICD-10-PCS; 2017-11-11)
PROC: HZ56ZZZ Individual Psychotherapy for Substance Abuse Treatment, Psychoeducation (ICD-10-PCS; 2017-11-11)
PROC: HZ42ZZZ Group Counseling for Substance Abuse Treatment, Cognitive-Behavioral (ICD-10-PCS; 2017-11-11)
PROC: HZ46ZZZ Group Counseling for Substance Abuse Treatment, Psychoeducation (ICD-10-PCS; 2017-11-11)
DX: F25.0 Schizoaffective disorder, bipolar type (principal); F14.20 Cocaine dependence, uncomplicated; F12.20 Cannabis dependence, uncomplicated; F17.210 Nicotine dependence, cigarettes, uncomplicated; F41.9 Anxiety disorder, unspecified; G47.00 Insomnia, unspecified